=== PATIENT | male | born 1975 | race Two or more races ===

== ENCOUNTER 2017-09-02 15:26 | Day surgery (SDC) | payer OTHER ==
[2017-09-02] MEDS ORDERED: PROPOFOL 60 ML (16:50)
[2017-09-02] MEDS ORDERED: LIDOCAINE 2% (SDV) 5 ML INJ (16:50)
== END 2017-09-02 17:31 | disposition home or self-care (01) ==
LOC: GIL 15:26
DX: K92.1 Melena (principal); D12.7 Benign neoplasm of rectosigmoid junction; K57.90 Diverticulosis of intestine, part unspecified, without perforation or abscess without bleeding
CPT/HCPCS: 45385; 88305

== ENCOUNTER 2018-09-23 07:16 | Day surgery (SDC) | payer OTHER ==
[~2018-09-23 07:16] MED LIST: BALANCED SALT SOLN 15 ML OPH IRRIG
[2018-09-23] MEDS: DICLOFENAC 0.1% 2.5 ML OPH OPER (07:58)
[2018-09-23] MEDS: MOXIFLOXACIN 0.5% 3 ML OPH OPER (07:59)
[2018-09-23] MEDS ORDERED: DIPHENHYDRAMINE 50 MG INJ IV (08:00)
[2018-09-23] MEDS ORDERED: ACETAMINOPHEN 325 MG TAB PO (08:00)
[2018-09-23] MEDS ORDERED: FENTAnyl 50 MCG/ML VIAL IV (08:00)
[2018-09-23] MEDS ORDERED: LABETALOL HCL 20MG INJ IV (08:00)
[2018-09-23] MEDS ORDERED: ONDANSETRON 4 MG INJ IV (08:00)
[2018-09-23] MEDS ORDERED: hydrALAzine 20 MG INJ IV (08:00)
[2018-09-23] MEDS ORDERED: ACETAMINOPHEN 500 MG TAB PO (08:00)
[2018-09-23] MEDS ORDERED: ALBUTEROL 0.083% (NEB) 2.5 MG/3 ML AMP HHN (08:00)
[2018-09-23] MEDS ORDERED: OXYCODONE/ACETAMINOPHEN (5/325) TAB PO (08:00)
[2018-09-23] MEDS: LIDOCAINE 4% (MPF) 5 ML INJ OPER (08:04)
[2018-09-23] MEDS ORDERED: MOXIFLOXACIN 0.5% 3 ML OPH (08:31)
[2018-09-23] MEDS: BUPIVACAINE 0.5% (SDV) 30 ML INJ (09:18)
[2018-09-23] MEDS: LIDOCAINE /PF 2% 10 ML AMPUL (09:19)
[2018-09-23] MEDS: EPINEPHrine 1 MG/ML 30 ML INJ IRR (09:21)
[2018-09-23] MEDS: LIDOCAINE 1.5%/EPI MPF (SDV) 30 ML VIAL (09:23)
[2018-09-23] MEDS: TETRACAINE 0.5% 4 ML OPH OP (09:24)
[2018-09-23] MEDS: TOBRAMYCIN/DEXAMETH 3.5 GM OPH OINT (09:25)
== END 2018-09-23 11:00 | disposition home or self-care (01) ==
LOC: SDS 07:16
DX: H11.001 Unspecified pterygium of right eye (principal)
CPT/HCPCS: 65426